=== PATIENT | female | born 1955 | race Caucasian/White ===

== ENCOUNTER 2023-08-08 09:20 | Day surgery (SDC) | payer OTHER ==
--- NOTE | 2023-08-07 11:31 | HP ---
DATE OF SURGERY: 08/08/2023 HISTORY OF PRESENT ILLNESS: The patient is a 68-year-old female presents with a positive Cologuard. She did have a hemorrhoid that bleeds at times. She has never had a scope. Past Cologuards have been negative. She has a history of hysterectomy for vaginal bleeding. PAST MEDICAL HISTORY: Hyperlipidemia, hypertension, thyroid, hemorrhoids. PAST SURGICAL HISTORY: Hysterectomy. Tonsillectomy. ALLERGIES: DOXYCYCLINE. MEDICATIONS: Caltrate, elderberry, flaxseed, fluticasone, amlodipine. FAMILY HISTORY: Congestive heart failure. SOCIAL HISTORY: Current every day smoker. REVIEW OF SYSTEMS: CONSTITUTIONAL: Denies fever or chills. CHEST: Denies shortness of breath. CVS: Denies chest pain. ABDOMEN: Denies abdominal pain. PHYSICAL EXAMINATION: GENERAL: No acute distress. CHEST: Nonlabored. No shortness of breath. CVS: Regular rate and rhythm. ABDOMEN: Soft. IMPRESSION: Positive Cologuard. PLAN: Colonoscopy with Dr. Ruddy Morocho. As dictated by Lanie Chacko NP.
[2023-08-08] MEDS: Lactated Ringers 1,000 ML IV SCH (09:37)
[2023-08-08 09:51] VITALS: PULSE 83; RESP 16; TEMP 97.3
[2023-08-08] MEDS ORDERED: DIPRIVAN 200 MG/20 ML IV ONE (11:57)
[2023-08-08] MEDS ORDERED: Versed 2 MG/2 ML Injection ONE (12:03)
[2023-08-08] MEDS ORDERED: GlucaGen 1 MG ONE (12:09)
[2023-08-08 13:34] VITALS: BP 133/81; O2SAT 100
--- NOTE | 2023-08-08 14:48 | OP ---
SURGERY DATE/TIME: 08/08/2023 1204 PREOPERATIVE DIAGNOSIS: Positive Cologuard. POSTOPERATIVE DIAGNOSIS: Limited exam 25 cm. PROCEDURE: Colonoscopy complete to cecum. SURGEON: Ruddy Morocho M.D. ANESTHESIA: MAC. DESCRIPTION OF PROCEDURE: Scope advanced to 25 cm. There was marked angulation. Despite care and patience, it just was not happening. She was sent for barium enema examination. Other than severe diverticulosis and angulation the anus, rectum and then 10 cm of sigmoid was satisfactory.
== END 2023-08-08 13:30 | disposition home or self-care (01) ==
LOC: SDC 09:20
PROVIDERS: ATTEND Surgery
DX: K57.30 Diverticulosis of large intestine without perforation or abscess without bleeding (principal); R19.5 Other fecal abnormalities
CPT/HCPCS: J1610; J2250; J2704